=== PATIENT | male | born 1990 | race African-American/Black ===

== ENCOUNTER 2020-05-22 06:42 | Day surgery (SDC) | payer OTHER ==
[~2020-05-22] VITALS: Ht 172.7 cm; Wt 72.6 kg
[2020-05-22] MEDS ORDERED: PAXIL20 MG PO (08:17)
[2020-05-22] MEDS ORDERED: XOPENEX HFA15 GM INH (08:17)
[2020-05-22 08:45] VITALS: BP 138/91; Ht 172.7 cm; Wt 72.6 kg
[2020-05-22 08:49] LABS: CALC OSMOLALITY 274 mosm/kg (275-300); CALCIUM 8.8 mg/dL (8.5-10.1); CARBON DIOXIDE 27.6 mmol/L (21.0-32.0); CHLORIDE - SERUM 104 mmol/L (98-107); CREATININE - SERUM 1.2 mg/dL (0.6-1.3); GLUCOSE 88 mg/dL (74-106); SODIUM 138 mmol/L (136-145); UREA NITROGEN 12 mg/dL (7-18); eGFR NON AFRICAN AMERICAN 76 mL/min (90-120)
[2020-05-22 09:01] LABS: HEMOGLOBIN 13.6 g/dL (13.5-17.5); MCH 29.1 pg (26.0-34.0); MCV 85.5 fL (80.0-100.0); MEAN PLATELET VOLUME 9.9 fL (7.4-10.4); RBC 4.68 10x6/uL (4.20-6.10); RDW 12.5 % (11.5-14.5)
--- NOTE | 2020-05-22 12:13 | HP ---
PATIENT: SAFIA MAKI MEDICAL RECORD: [id number] ACCOUNT: [id number] LOCATION:[facility] : 89 ADMISSION DATE: 05/22/20 PCP: No PCP HISTORY AND PHYSICAL EXAMINATION CHIEF COMPLAINT: Hernia. HISTORY OF PRESENT ILLNESS: The patient has a reducible large left inguinal scrotal hernia. It has been enlarging. It is about the size of a grapefruit now. It has been causing pain. I explained to him the pathophysiology of hernias as well as how we fix them and the fact that we would have to use mesh in his case. I also discussed with him the possibility of chronic pain, infection as well as reherniation and pseudo sac hematoma. PAST MEDICAL AND SURGICAL HISTORY: Reactive airway disease. MEDICINES AT THE ALF: Paroxetine, Xopenex. ALLERGIES: No known drug allergies. PHYSICAL EXAMINATION: GENERAL: The patient does not appear acutely ill. He does appear chronically ill. VITAL SIGNS: Reviewed. EARS: External ears appear normal. EYES: Extraocular movements are intact. NECK: Trachea is midline. CHEST: No intercostal retractions. PULMONARY: Nonlabored. No stridor. PELVIC: Genitals; bilateral testicles, large left inguinal hernia, which is reducible. No right inguinal hernia. IMPRESSION: Symptomatic left inguinal hernia. PLAN: Open left inguinal hernia repair with mesh. TRANSINT:[id number] Voice Confirmation ID: [id number] DOCUMENT ID: [id number] cc: Dr. Jose LOUIS, WILLIAM KAMARA at 1213 CC: [id number] DICTATION DATE: 05/22/20 0734 WAITER/WAITRESS THIRD CLASS: 05/22/20 0757 REG [facility] [address] [place] [address]
--- NOTE | 2020-05-22 14:10 | NUR ---
1350 ASSISTED UP TO BATHROOM TO VOID, SMALL AMT OF BURNING. PT HAD A CATH IN OR. STERI STRIP TO INCISION AND CDI WITH KERLEX ROLL. IV REMOVED
--- NOTE | 2020-05-25 13:39 | OP ---
PATIENT NAME: SAFIA MAKI MEDICAL RECORD: [id number] :89 LOCATION:[facility] ADMISSION DATE: SURGEON: STEFFEN LOUIS MD DATE OF OPERATION: 05/22/2020 PREOPERATIVE DIAGNOSIS: Large left inguinal hernia. POSTOPERATIVE DIAGNOSIS: Large indirect left inguinal hernia. PROCEDURE: Open repair of large indirect inguinal hernia, non-incarcerated. SURGEON: Steffen Louis MD TEST ENGINEER: None. BLOOD LOSS: Minimal. ANESTHESIA: General. COMPLICATIONS: None. The risks, possible complications, and alternatives of the procedure were explained to the patient. He elects to proceed. The discussion specifically included, but was not limited to, bleeding requiring emergency reoperation, infection, intestinal injury. OPERATIVE COURSE: The patient was conveyed to the operating room electively on 05/22/2020. General anesthesia was induced by the anesthesia staff. The abdomen and genitals were sterilely prepped and draped. Transverse incision was accomplished in the left groin. Sharp dissection was carried down through the skin and subcutaneous tissue as well as Jorge Luis's fascia. The external oblique aponeurosis was then sharply cleaned of overlying connective tissue. External oblique aponeurosis was then incised along the direction of its fibers. I bluntly dissected down through the internal oblique and transversus abdominis muscles. A preperitoneal pocket was fashioned bluntly. There was no direct component. No femoral component. An indirect hernia was reduced in its entirety. I opened the hernia sac. Omentum was found within the hernia sac and it was not scarred down to the hernia sac. I then reperitonealized. I then highly ligated the sac with a pursestring suture of 3-0 Vicryl. I transected the sac distal to this. I then cut two ovals out of a polypropylene mesh. The 2 holes were sutured together with a running #1 Surgidac. The mesh was placed in the preperitoneal space. I allowed the internal oblique and transversus abdominis muscles to come together over the mesh. They were sutured together with multiple interrupted horizontal mattress 0 Surgidac. The external oblique aponeurosis was closed with running #1 Vicryls. Jorge Luis's fascia was approximated with interrupted 3-0 Vicryl. The subdermis was approximated with interrupted 3-0 Vicryl. The skin was approximated with a running intracuticular 4-0 Vicryl. Benzoin and Steri-Strips were applied. The patient was then extubated and conveyed to post-anesthesia care unit where he was in stable condition. There is no need for the patient to follow up with me in the office unless he develops a complication related to this operative procedure. I have written a prescription for tramadol as well as Colace. If I OPERATIVE REPORT [id number] SAFIA MAKI need to see the patient, I can see him on a GI Clinic day out of the [facility]. TRANSINT:[id number] Voice Confirmation ID: [id number] DOCUMENT ID: [id number] STEFFEN LOUIS MD at 1339 CC: OUACHITARIV [id number] DICTATION DATE: 05/22/20 1416 [facility] [employer]ER: 05/22/20 1641 [facility] 05/22/20 [id number] [place] [address]
== END 2020-05-22 14:10 ==
LOC: D.OPS 06:42
PROVIDERS: Anesthesiology; ATTEND Surgery
DX: K40.90 Unilateral inguinal hernia, without obstruction or gangrene, not specified as recurrent (principal); J45.909 Unspecified asthma, uncomplicated